=== PATIENT | female | born 1975 | race Caucasian/White ===

== ENCOUNTER 2021-03-02 14:48 | Observation (INO) | payer OTHER, SELFPAY ==
[2021-03-02 14:53] VITALS: BP 118/83; PULSE 111; RESP 18; TEMP 36.7; O2SAT 96
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
[2021-03-02 15:51] LABS: Abs Immature Grans 0.03 10^3/uL (0.0-0.06); Absolute Basophil Count 0.14 10^3/uL (0.0-0.2); Absolute Eosinophil Count 0.15 10^3/uL (0.0-0.7); Absolute Lymphocyte Count 3.51 10^3/uL (1.2-3.4); Absolute Monocyte Count 0.51 10^3/uL (0.1-0.8); Absolute Neutrophil Count 4.62 10^3/uL (1.2-6.7); Basophils % 1.6; Eosinophils % 1.7; HCT 46.1 % (36.0-46.0); HGB 15.5 g/dL (11.2-15.7); Immature Grans % 0.3; Lymphocytes % 39.2; MCH 30.8 pg (27.0-33.0); MCHC 33.6 % (32.0-36.0); MCV 91.5 fL (80-95); MPV 8.7 fL (8.0-11.0); Monocytes % 5.7; Neutrophils % 51.5; Nucleated RBC 0 %; Platelet Count 491 10^3/uL (130-400); RBC 5.04 10^6/uL (3.93-5.22); RDW 11.7 % (11.7-14.6); RDW-SD 39.4 fL; WBC 8.96 10^3/uL (4.4-10.8)
[2021-03-02] MEDS: Normal Saline Flush 10 ML SYR IVP (16:01)
[2021-03-02] MEDS: Lactated Ringers 1,000 ML 1000 ML IV (16:01)
[2021-03-02 16:04] LABS: ALT 109 U/L (14-59); AST 89 U/L (15-37); Albumin 4.4 g/dL (3.4-5.0); Alkaline Phosphatase 172 U/L (46-116); Anion Gap 13.9 mmol/L (3-11); BUN 10 mg/dL (7-18); Bilirubin, Total 0.3 mg/dL (0.2-1.0); CO2 25.1 mmol/L (21.0-32.0); CREATININE 0.8 mg/dL (0.55-1.02); Calcium 9.2 mg/dL (8.5-10.1); Chloride 106 mmol/L (98-107); Glucose 115 mg/dL (74-106); Lipase 150 U/L (73-393); Magnesium 2.4 mg/dL (1.8-2.4); Potassium 3.9 mmol/L (3.5-5.1); Sodium 145 mmol/L (136-145); Total Protein 8.6 g/dL (6.4-8.2)
[2021-03-02 16:06] LABS: ETHANOL BLOOD 382.9 mg/dL (<3); Troponin I < 0.05 ng/mL (<0.06)
[2021-03-02 16:22] LABS: Salicylate < 2.8 mg/dL (<2.8)
[2021-03-02 16:29] LABS: Acetaminophen < 2 ug/mL (10-30)
[2021-03-02 16:30] LABS: TSH (W/Ref FT4) 0.98 uIU/mL (0.36-3.74)
[2021-03-02 16:31] LABS: Bilirubin Negative (Negative); Blood Negative (Negative); Clarity Clear (Clear); Glucose Negative (Negative); Ketones 15 mg/dL (Negative); Leukocyte Esterase Negative (Negative); Nitrite Negative (Negative); Specific Gravity 1.015 (1.005-1.025); Urobilinogen 0.2 EU/dL (Up TO 0.2); pH 5.5 (5-8)
[2021-03-02 16:35] LABS: *AMPHETAMINES SCREEN URINE Negative (Negative); *BARBITURATES SCREEN URINE Negative (Negative); *BENZODIAZEPINES SCREEN URINE Negative (Negative); Cannabinoids THC Negative (Negative); Cocaine Screen,Urine Negative (Negative); METHADONE URINE SCREEN Negative (Negative); OPIATES URINE SCREEN Negative (Negative)
[2021-03-02 16:39] LABS: Tricyclic Antidepressants Negative (Negative)
[2021-03-02] MEDS: Omnipaque 350 MG/ML 100 ML BTL IJ (17:03)
[2021-03-02] MEDS: Normal Saline - Diluent 50 ML VIAL IV (17:03)
[2021-03-02 17:14] VITALS: BP 88/59; PULSE 79; PULSE 92; RESP 15; O2SAT 95
[2021-03-02 17:17] LABS: Source Nasal/Nares
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
[2021-03-02 18:26] LABS: COVID-19 PCR Negative (Negative)
[2021-03-02 18:40] LABS: Troponin I < 0.05 ng/mL (<0.06)
[2021-03-02 19:45] VITALS: BP 129/92; PULSE 104; RESP 17; TEMP 36.5; O2SAT 97
--- NOTE | 2021-03-02 21:01 | NUR.NOTE ---
director life insurance at bedside talking with patient. pt calm, cooperative with care cpso at bedside also:
[2021-03-02] MEDS: Gabapentin 300 MG CAP 600 MG PO (21:57)
[2021-03-02 22:10] VITALS: BP 147/96; PULSE 97; RESP 17; O2SAT 97
[2021-03-03] MEDS: Acetaminophen 500 MG TAB 1000 MG PO (04:27)
--- NOTE | 2021-03-03 04:27 | NUR.NOTE ---
pt awake, requesting medication for headache. pt medicated per md order. no s/sxs of distress noted.:
[2021-03-03] MEDS: Gabapentin 300 MG CAP 600 MG PO (07:14)
[2021-03-03 08:06] VITALS: BP 130/92; PULSE 110; RESP 16; TEMP 36.8; O2SAT 95
[2021-03-03] MEDS: Famotidine 20 MG TAB PO (08:15)
--- NOTE | 2021-03-03 09:45 | NUR.NOTE ---
Nursing Note: 0940 breatherlizer by per request Linda Perez. Pt agreed to test--results- 0
[2021-03-03] MEDS: LORazepam 1 MG TAB PO ×2 (10:01→18:49)
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
--- NOTE | 2021-03-03 11:52 | CMSP_ITS ---
- If Service Date Differs Date of service: 03/03/21 Time of Service: 11:52 Care Management Safety Plan Status: Voluntary - Reason for Wait Reason for Wait: Inpatient Admission VOLUNTARY FOR INPATIENT PSYCHIATRIC STABILIZATION. Patient is appropriate in all interactions since arriving at [facility]; Pt has demonstrated appropriate coping and communication skills, has articulated his or her needs and concerns and is fully engaged during staff interactions. A huddle is held with Dr. Brent Kendall, ED provider, Leslie, nursing supervisor rides, Geetha, charge nurse, GUNJAN Omer, Vadim, [facility], and CONCHA Hernandez. Safety plan has been established with patient, and care team, to adhere to patient goals, identify restrictions based on behavioral status, address nutrition, and determine allowed personal belongings, tools for hygiene and personal care. Determine level of activity including ambulation, level of supervision, visitors, and determine privileges based on behaviors and level of engagement by pt. SAFETY PLAN: 1. Will remain on suicide precautions. In Paper Clothes 2. Will remain in room under direct supervision of one-on-one staff at all times provided by CPSO, MANDA, CUTTING TOOL SHARPENER combined rail operator. 3. May have paper cups, plates, finger foods as well as a cardboard spoon with which to eat meals. 4. Follow [facility] Management of the Admitted Behavioral Health Patient policy. 5. Personal care: May shower with supervision and at RN discretion. 6. No personal belongings. 7. Visitors: No visitors at this time. 8. Activities: Soft cart items, coloring book, crayons, music tablet, televi jorden if available, and other activities at RN discretion. 9. Bathroom privileges with escort while in the ED. May use bathroom available in room without restrictions on Med/Surg. 10. Phone: May use hospital phone for incoming and outgoing telephone calls at RN discretion. 11. Due to VOLUNTARY status, if patient wishes to leave [facility], staff will contact [facility] Crisis Screener ([phone]) and On-Call Legal Aide ([phone]) as soon as possible. In the event of elopement, notify [facility] Police ([phone]). Patient is currently voluntarily at [facility] and seeking inpatient admission when a bed becomes available. [facility] Frontline Porcelain Finish Sprayer will continue seeking placement. Please contact the Upholstery Cutter Legal Aide ([phone]) and [facility] Porcelain Finish Sprayer ([phone]) for any needed changes in the Safety Plan. Safety plan has been provided to interdepartmental care team.
[2021-03-03 12:00] VITALS: BP 104/69; PULSE 103; RESP 16; TEMP 37.2; O2SAT 95
[2021-03-03] MEDS: Gabapentin 800 MG TAB PO ×2 (14:35→21:57)
--- NOTE | 2021-03-03 14:59 | NUR.NOTE ---
Nursing Note: Cam Adamson called from the [facility]. Patient had called the National Suicide Hotline, [place] threatening to take her life. He was following up on the call. Patient [facility] not currently [facility] with the [facility] but he wanted to know if she wanted to register, services or VA assistance. Minnie Barrientos, RN spoke with patient and patient stated she has services in place that she needs. She does not require any at this time from the [facility]. Jacqueline Ennis
--- NOTE | 2021-03-03 15:50 | NUR.NOTE ---
Addendum entered by Jacqueline Ennis 03/03/21 15:52: Any inpatient admission, they need to have notification. Original Note: Nursing Note: Called [facility] and spoke with John. He gave me the patient's correct Policy # [id number] and that she had [employer] HMO plan. Effective date 09/26/2019 and it is still active. Jacqueline Ennis
--- NOTE | 2021-03-03 16:17 | NUR.NOTE ---
Nursing Note: I contacted [address] [address]; Main # [phone], Medical Records [phone], and fax # for Medical Records [phone]. They will fax most recent admission notes to [facility] ED. Release by patient was signed but not needed. Jacqueline Ennis
[2021-03-03] MEDS: Mylanta Suspension 30 ML CUP PO (18:48)
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
[2021-03-03 21:04] VITALS: BP 107/71; PULSE 94; RESP 18; TEMP 36.6; O2SAT 97
[2021-03-03 21:50] VITALS: BP 131/87; PULSE 85; RESP 18; TEMP 36.9; O2SAT 96
[2021-03-03 23:13] VITALS: BP 104/71; PULSE 88; RESP 17; TEMP 36.8; O2SAT 96
[2021-03-04 01:00] VITALS: BP 103/72; PULSE 88; RESP 12; TEMP 36.5; O2SAT 95
[2021-03-04] MEDS: LORazepam 0.5 MG TAB PO ×2 (01:39→10:39)
[2021-03-04 03:00] VITALS: BP 111/75; PULSE 91; RESP 12; TEMP 36.3; O2SAT 97
[2021-03-04 05:00] VITALS: RESP 14; TEMP 36.2
[2021-03-04 08:37] VITALS: BP 142/97; PULSE 103; RESP 16; TEMP 36.4; O2SAT 96
[2021-03-04] MEDS: Gabapentin 800 MG TAB PO ×3 (09:00→19:43)
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
--- NOTE | 2021-03-04 09:41 | W.PM.PROGNOT ---
Date of Service Date of service: 03/04/21 Time of Service: 09:42 Assessment and Plan Assessment and plan (1) Depression: Status: Chronic Assessment and plan: on a voluntary hold here until an inpatient psychiatric bed opens. CPSO and safety plan no behavioral issues continue home medications (2) Alcohol abuse: Status: Chronic Assessment and plan: no signs of withdrawal, continue to monitor. (3) Discharge planning issues: Status: Acute Assessment and plan: mental health following case management following anticipate discharge to inpatient psychiatric bed when available. discussed with Dr Mai Subjective Subjective Patient reports: no new complaints, tolerating liquids well, tolerating a regular diet and afebrile Interval history since last seen: medically clear with no behavioral issues. Exam Const General: comfortable, well developed and No well groomed Nutritional Appearance: average body habitus and well nourished Orientation: alert, awake and oriented x3 HENMT Head: normal to inspection, no palpable skull fracture, normocephalic and atraumatic Ears: hearing grossly normal bilaterally, external ears normal and TM's normal bilaterally General nose exam: external nose normal Mouth: oral mucosae normal and tongue normal Throat: posterior oropharynx normal Eyes General: appearance abnormal, both eyes (patient missing left eye, 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) Alignment and Position: alignment normal Periorbital: periorbital findings normal Eyelids: eyelids normal Conjunctivae: conjunctivae normal Pupils: PERRL Neck Neck: full ROM, trachea midline and supple Resp Effort & Inspection: normal respiratory effort, able to speak in complete sentences and no respiratory distress Auscultation: clear to auscultation bilaterally, no rales, no rhonchi and no wheezes Cardio Rate: regular rate Rhythm: regular rhythm Heart Sounds: S1 normal and S2 normal GI Inspection: normal to inspection and non-distended Palpation: soft, not firm, no guarding, not rigid and nontender Auscultation: normal bowel sounds Back/Spine/Pelvis Back: no CVA tenderness Thoracic/Lumbar Spine: thoracic and lumbar spine normal to inspection Skin General skin exam: no rashes or lesions noted Lesions: no lesions Rashes: no rashes Trauma: no lacerations or abrasions Wounds: no wounds Neuro General: patient alert, patient awake, patient oriented x3, gait normal, tone normal and moves all extremities Cranial Nerves: CN's II-XI intact bilaterally Cognition: normal cognition Speech: speech normal Gait: normal gait Motor: muscle tone normal throughout and strength 5/5 throughout Extrem General: normal to inspection, full ROM, capillary refill normal, no pedal edema and no calf tenderness Psych Appearance: grossly normal, poorly kempt and disheveled Mental Status: mental status grossly normal Objective Last Vital Signs Temp 36.4 C L 03/04/21 08:37 Pulse 103 H 03/04/21 08:37 Resp 16 03/04/21 08:37 BP 142/97 H 03/04/21 08:37 Pulse Ox 96 03/04/21 08:37
--- NOTE | 2021-03-04 11:31 | CMSP_ITS ---
- If Service Date Differs Date of service: 03/04/21 Time of Service: 11:31 Care Management Safety Plan Status: Voluntary - Reason for Wait Reason for Wait: Inpatient Admission VOLUNTARY FOR INPATIENT PSYCHIATRIC STABILIZATION. Patient is appropriate in all interactions since arriving at [facility]; Pt has demonstrated appropriate coping and communication skills, has articulated his or her needs and concerns and is fully engaged during staff interactions. Safety plan has been established with patient, and care team, to adhere to patient goals, identify restrictions based on behavioral status, address nutr ition, and determine allowed personal belongings, tools for hygiene and personal care. Determine level of activity including ambulation, level of supervision, visitors, and determine privileges based on behaviors and level of engagement by pt. A safety huddle was held at 9:30 am. Attending were: ROLANDO Colvin, Jennifer Omer Darcy and Mica, Care Management, Linda and Ronit [facility], nursing sanitation supervisor. SAFETY PLAN: 1. Will remain on suicide precautions. In Paper Clothes 2. Will remain in room under direct supervision of one-on-one staff at all times provided by CPSO; MANDA, AVIATION PROJECT MANAGER clinical mental health counselor. 3. May have paper cups, plates, finger foods as well as a cardboard spoon with which to eat meals. 4. Follow [facility] Management of the Admitted Behavioral Health Patient policy. 5. Comfort bath system only. 6. No personal belongings 7. Visitors-No visitors at this time 8. Activities: may watch TV if available, soft items from activity cart, coloring materials at nursing's discretion 9. Bathroom privileges 10. Phone: may use hospital phone to make and receive calls at nursing's discretion. Father NOT to be contacted. 11. Due to VOLUNTARY status, if patient wishes to leave [facility], staff will contact [facility] Crisis Screener ([phone]) and On-Call Clinical Nurse Specialist ([phone]) as soon as possible. In the event of elopement, notify [facility] Police ([phone]). Patient is currently voluntarily at [facility] and seeking inpatient admission when a bed becomes available. [facility] Frontline Dispensing Operator will continue seeking placement. Please contact the Director Business Intelligence Clinical Nurse Specialist ([phone]) and [facility] Dispensing Operator ([phone]) for any needed changes in the Safety Plan. Safety plan has been provided to interdepartmental care team.
--- NOTE | 2021-03-04 11:31 | PDOC.CMSAFE ---
- If Service Date Differs Date of service: 03/04/21 Time of Service: 11:31 Care Management Safety Plan Status: Voluntary - Reason for Wait Reason for Wait: Inpatient Admission VOLUNTARY FOR INPATIENT PSYCHIATRIC STABILIZATION. Patient is appropriate in all interactions since arriving at [facility]; Pt has demonstrated appropriate coping and communication skills, has articulated his or her needs and concerns and is fully engaged during staff interactions. Safety plan has been established with patient, and care team, to adhere to patient goals, identify restrictions based on behavioral status, address nutrition, and determine allowed personal belongings, tools for hygiene and personal care. Determine level of activity including ambulation, level of supervision, visitors, and determine privileges based on behaviors and level of engagement by pt. A safety huddle was held at 9:30 am. Attending were: ROLANDO Colvin, Jennifer Omer Darcy and Mica, Care Management, Linda and Ronit [facility], nursing sort operations supervisor. SAFETY PLAN: 1. Will remain on suicide precautions. In Paper Clothes 2. Will remain in room under direct supervision of one-on-one staff at all times provided by CPSO; MANDA, JAVA SUPPORT ENGINEER mash filter operator. 3. May have paper cups, plates, finger foods as well as a cardboard spoon with which to eat meals. 4. Follow [facility] Management of the Admitted Behavioral Health Patient policy. 5. Comfort bath system only. 6. No personal belongings 7. Visitors-No visitors at this time 8. Activities: may watch TV if available, soft items from activity cart, coloring materials at nursing's discretion 9. Bathroom privileges 10. Phone: may use hospital phone to make and receive calls at nursing's discretion. Father NOT to be contacted. 11. Due to VOLUNTARY status, if patient wishes to leave [facility], staff will contact [facility] Crisis Screener ([phone]) and On-Call Operator/Assistant Foreman ([phone]) as soon as possible. In the event of elopement, notify [place] State Police ([phone]). Patient is currently voluntarily at [facility] and seeking inpatient admission when a bed becomes available. [facility] Frontline Driver Material Handler will continue seeking placement. Please contact the Freight Rate Clerk Operator/Assistant Foreman ([phone]) and [facility] Driver Material Handler ([phone]) for any needed changes in the Safety Plan. Safety plan has been provided to interdepartmental care team.
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
[2021-03-04] MEDS: Acamprosate 333 MG TABCR 666 MG PO ×2 (14:01→19:43)
[2021-03-04 19:33] VITALS: BP 116/78; PULSE 131; RESP 19; TEMP 37.1; O2SAT 98
[2021-03-04] MEDS: Mylanta Suspension 30 ML CUP PO (21:50)
[2021-03-04] MEDS: Amitriptyline 25 MG TAB PO (21:50)
[2021-03-04 22:58] VITALS: BP 124/87; PULSE 110; RESP 18; TEMP 36.6; O2SAT 95
[2021-03-04] MEDS: Ibuprofen 400 MG TAB PO (23:02)
[2021-03-05] MEDS: Acetaminophen 500 MG TAB 1000 MG PO ×3 (02:20→21:52)
[2021-03-05] MEDS: LORazepam 0.5 MG TAB PO ×2 (04:58→21:53)
[2021-03-05 08:25] VITALS: BP 96/65; PULSE 94; RESP 15; TEMP 36.8; O2SAT 96
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
[2021-03-05] MEDS: Cyanocobalamin 500 MCG TAB 1000 MCG PO (09:12)
[2021-03-05] MEDS: Folic Acid 1 MG TAB PO (09:12)
[2021-03-05] MEDS: Acamprosate 333 MG TABCR 666 MG PO ×3 (09:12→21:54)
[2021-03-05] MEDS: Omeprazole 20 MG CAPCR PO (09:12)
[2021-03-05] MEDS: Gabapentin 800 MG TAB PO ×3 (09:13→21:54)
[2021-03-05] MEDS: Mylanta Suspension 30 ML CUP PO ×2 (10:32→15:29)
--- NOTE | 2021-03-05 10:43 | CMSP_ITS ---
- If Service Date Differs Date of service: 03/05/21 Time of Service: 10:43 Care Management Safety Plan Status: Voluntary - Reason for Wait Reason for Wait: Inpatient Admission VOLUNTARY FOR INPATIENT PSYCHIATRIC STABILIZATION. Patient is appropriate in all interactions since arriving at [facility]; Pt has demonstrated appropriate coping and communication skills, has articulated his or her needs and concerns and is fully engaged during staff interactions. Safety plan has been established with patient, and care team, to adhere to patient goals, identify restrictions based on behavioral status, address nutr ition, and determine allowed personal belongings, tools for hygiene and personal care. Determine level of activity including ambulation, level of supervision, visitors, and determine privileges based on behaviors and level of engagement by pt. A safety huddle was held at 9:30 am. Attending were: ROLANDO Colvin, Jennifer Omer Darcy and Mica, Care Management, Linda and Ronit [facility], nursing alum plant supervisor. SAFETY PLAN: 1. Will remain on suicide precautions. In Paper Clothes 2. Will remain in room under direct supervision of one-on-one staff at all times provided by CPSO; MANDA, CARBON FURNACE OPERATOR HELPER risk control director. 3. May have paper cups, plates, finger foods as well as a cardboard spoon with which to eat meals. 4. Follow [facility] Management of the Admitted Behavioral Health Patient policy. 5. May shower at nursing discretion. 6. No personal belongings, may have yoga mat. 7. Visitors-No visitors at this time 8. Activities: may watch TV if available, soft items from activity cart, colori ng materials at nursing's discretion 9. Bathroom privileges 10. Phone: may use hospital phone to make and receive calls at nursing's discretion. Father NOT to be contacted. 11. Due to VOLUNTARY status, if patient wishes to leave [facility], staff will contact [facility] Crisis Screener ([phone]) and On-Call Vice President For Philanthropy ([phone]) as soon as possible. In the event of elopement, notify [facility] Police ([phone]). Patient is currently voluntarily at [facility] and seeking inpatient admission when a bed becomes available. [facility] Frontline Cutter First will continue seeking placement. Please contact the Retail Cashier Vice President For Philanthropy ([phone]) and [facility] Cutter First ([phone]) for any needed changes in the Safety Plan. Safety plan has been provided to interdepartmental care team.
--- NOTE | 2021-03-05 10:43 | PDOC.CMSAFE ---
- If Service Date Differs Date of service: 03/05/21 Time of Service: 10:43 Care Management Safety Plan Status: Voluntary - Reason for Wait Reason for Wait: Inpatient Admission VOLUNTARY FOR INPATIENT PSYCHIATRIC STABILIZATION. Patient is appropriate in all interactions since arriving at [facility]; Pt has demonstrated appropriate coping and communication skills, has articulated his or her needs and concerns and is fully engaged during staff interactions. Safety plan has been established with patient, and care team, to adhere to patient goals, identify restrictions based on behavioral status, address nutrition, and determine allowed personal belongings, tools for hygiene and personal care. Determine level of activity including ambulation, level of supervision, visitors, and determine privileges based on behaviors and level of engagement by pt. A safety huddle was held at 9:30 am. Attending were: ROLANDO Colvin, Jennifer Omer Darcy and Mica, Care Management, Linda and Ronit [facility], nursing sign builder supervisor. SAFETY PLAN: 1. Will remain on suicide precautions. In Paper Clothes 2. Will remain in room under direct supervision of one-on-one staff at all times provided by CPSO; MANDA, DEVELOPMENT REPRESENTATIVE pig casting machine operator. 3. May have paper cups, plates, finger foods as well as a cardboard spoon with which to eat meals. 4. Follow [facility] Management of the Admitted Behavioral Health Patient policy. 5. May shower at nursing discretion. 6. No personal belongings, may have yoga mat. 7. Visitors-No visitors at this time 8. Activities: may watch TV if available, soft items from activity cart, coloring materials at nursing's discretion 9. Bathroom privileges 10. Phone: may use hospital phone to make and receive calls at nursing's discretion. Father NOT to be contacted. 11. Due to VOLUNTARY status, if patient wishes to leave [facility], staff will contact [facility] Crisis Screener ([phone]) and On-Call Machinist Wood ([phone]) as soon as possible. In the event of elopement, notify [facility] Police ([phone]). Patient is currently voluntarily at [facility] and seeking inpatient admission when a bed becomes available. [facility] Frontline Photographic Printer will continue seeking placement. Please contact the Merchant Mariner Machinist Wood ([phone]) and [facility] Photographic Printer ([phone]) for any needed changes in the Safety Plan. Safety plan has been provided to interdepartmental care team.
[2021-03-05 11:28] VITALS: BP 114/89; PULSE 118; RESP 16; TEMP 37; O2SAT 95
--- NOTE | 2021-03-05 14:09 | W.PM.PROGNOT ---
Date of Service Date of service: 03/05/21 Time of Service: 14:09 Assessment and Plan Assessment and plan (1) Depression: Status: Chronic Assessment and plan: on a voluntary hold here until an inpatient psychiatric bed opens. CPSO and safety plan no behavioral issues continue home medications (2) Alcohol abuse: Status: Chronic Assessment and plan: no signs of withdrawal, continue to monitor. (3) Discharge planning issues: Status: Acute Assessment and plan: mental health following case management following anticipate discharge to inpatient psychiatric bed when available. discussed with Dr Mai Subjective Subjective Patient reports: no new complaints, tolerating liquids well, tolerating a regular diet, voiding w/o difficulty and afebrile Interval history since last seen: no sign of alcohol withdrawal Exam Const General: comfortable, well developed and No well groomed Nutritional Appearance: average body habitus and well nourished Orientation: alert, awake and oriented x3 HENMT Head: normal to inspection, no palpable skull fracture, normocephalic and atraumatic Ears: hearing grossly normal bilaterally, external ears normal and TM's normal bilaterally General nose exam: external nose normal Mouth: oral mucosae normal and tongue normal Throat: posterior oropharynx normal Eyes General: appearance abnormal, both eyes (patient missing left eye, 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) Alignment and Position: alignment normal Periorbital: periorbital findings normal Eyelids: eyelids normal Conjunctivae: conjunctivae normal Pupils: PERRL Neck Neck: full ROM, trachea midline and supple Resp Effort & Inspection: normal respiratory effort, able to speak in complete sentences and no respiratory distress Auscultation: clear to auscultation bilaterally, no rales, no rhonchi and no wheezes Cardio Rate: regular rate Rhythm: regular rhythm Heart Sounds: S1 normal and S2 normal GI Inspection: normal to inspection and non-distended Palpation: soft, not firm, no guarding, not rigid and nontender Auscultation: normal bowel sounds Back/Spine/Pelvis Back: no CVA tenderness Thoracic/Lumbar Spine: thoracic and lumbar spine normal to inspection Skin General skin exam: no rashes or lesions noted Lesions: no lesions Rashes: no rashes Trauma: no lacerations or abrasions Wounds: no wounds Neuro General: patient alert, patient awake, patient oriented x3, gait normal, tone normal and moves all extremities Cranial Nerves: CN's II-XI intact bilaterally Cognition: normal cognition Speech: speech normal Gait: normal gait Motor: muscle tone normal throughout and strength 5/5 throughout Extrem General: normal to inspection, full ROM, capillary refill normal, no pedal edema and no calf tenderness Psych Appearance: grossly normal, poorly kempt and disheveled Mental Status: mental status grossly normal Objective Last Vital Signs Temp 37 C 03/05/21 11:28 Pulse 118 H 03/05/21 11:28 Resp 16 03/05/21 11:28 BP 114/89 03/05/21 11:28 Pulse Ox 95 03/05/21 11:28
[2021-03-05 15:35] VITALS: BP 115/84; PULSE 114; RESP 18; TEMP 36.5; O2SAT 98
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
[2021-03-05] MEDS: Amitriptyline 25 MG TAB PO (21:54)
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
[2021-03-06 08:53] VITALS: BP 118/77; PULSE 95; RESP 16; TEMP 36.3; O2SAT 98
[2021-03-06] MEDS: Acamprosate 333 MG TABCR 666 MG PO ×3 (08:57→21:05)
[2021-03-06] MEDS: Cyanocobalamin 500 MCG TAB 1000 MCG PO (08:57)
[2021-03-06] MEDS: Gabapentin 800 MG TAB PO ×3 (08:58→21:04)
[2021-03-06] MEDS: Folic Acid 1 MG TAB PO (08:58)
[2021-03-06] MEDS: Omeprazole 20 MG CAPCR PO (08:58)
--- NOTE | 2021-03-06 09:10 | NUR.NOTE ---
Patient on phone with . Patient telling her that mental health worker Linda is trying to make her look crazy and trying to put her into a mental hospital. Patient becoming agitated stating that Linda is trying to make it look like she is going to hang herself or kill other people. Patient also telling to prepare for mental health to call with multiple negative questions and trap into making a report that makes patient seem unstable. Patient also expressing desire to return to [place] and telling her to not ask questions and to stay straight on the path when mental health worker calls him.
--- NOTE | 2021-03-06 09:40 | PDOC.CMSAFE ---
- If Service Date Differs Date of service: 03/06/21 Time of Service: 09:40 Care Management Safety Plan Status: Voluntary - Reason for Wait Reason for Wait: Inpatient Admission VOLUNTARY FOR INPATIENT PSYCHIATRIC STABILIZATION. Patient is appropriate in all interactions since arriving at [facility]; Pt has demonstrated appropriate coping and communication skills, has articulated his or her needs and concerns and is fully engaged during staff interactions. Safety plan has been established with patient, and care team, to adhere to patient goals, identify restrictions based on behavioral status, address nutrition, and determine allowed personal belongings, tools for hygiene and personal care. Determine level of activity including ambulation, level of supervision, visitors, and determine privileges based on behaviors and level of engagement by pt. A safety huddle was held at 9:30 am. Attending were: ROLANDO Colvin, Jennifer Omer Darcy and Mica, Care Management, Linda and Ronit [facility], nursing mechanical maintenance supervisor. SAFETY PLAN: 1. Will remain on suicide precautions in paper clothes 2. Will remain in room under direct supervision of one-on-one staff at all times provided by CPSO; MANDA, FURNITURE ASSEMBLER AND INSTALLER scrap hoist operator. 3. May have paper cups, plates, finger foods as well as a cardboard spoon with which to eat meals. 4. Follow [facility] Management of the Admitted Behavioral Health Patient policy. 5. May shower at nursing discretion. 6. No personal belongings but may have yoga mat. 7. Visitors- may visit at nursing discretion 8. Activities: may watch TV if available, soft items from activity cart, coloring materials at nursing's discretion 9. Bathroom privileges 10. Phone: may use hospital phone to make and receive calls at nursing's discretion. Parents no longer on HIPAA. 11. Due to VOLUNTARY status, if patient wishes to leave [facility], staff will contact [facility] Crisis Screener ([phone]) and On-Call Molding Machine Tender ([phone]) as soon as possible. In the event of elopement, notify [facility] Police ([phone]). Patient is currently voluntarily at [facility] and seeking inpatient admission when a bed becomes available. [facility] Frontline Sheet Rock Finisher will continue seeking placement. Please contact the Printed Circuit Board Panels Deburrer Molding Machine Tender ([phone]) and [facility] Sheet Rock Finisher ([phone]) for any needed changes in the Safety Plan. Safety plan has been provided to interdepartmental care team. cc:
[2021-03-06] MEDS: Acetaminophen 500 MG TAB 1000 MG PO ×3 (10:10→23:40)
[2021-03-06] MEDS: Ibuprofen 400 MG TAB PO ×2 (14:02→21:06)
[2021-03-06] MEDS: LORazepam 0.5 MG TAB PO ×3 (14:07→21:05)
--- NOTE | 2021-03-06 14:45 | W.PM.PROGNOT ---
Date of Service Date of service: 03/06/21 Time of Service: 14:45 Assessment and Plan Assessment and plan (1) Depression: Status: Chronic Assessment and plan: on a voluntary hold here until an inpatient psychiatric bed opens. CPSO and safety plan no behavioral issues continue home medications (2) Alcohol abuse: Status: Chronic Assessment and plan: no signs of withdrawal, will discontinue ciwa. (3) Discharge planning issues: Status: Acute Assessment and plan: mental health following case management following anticipate discharge to inpatient psychiatric bed when available. discussed with Dr Mai Subjective Subjective Patient reports: no new complaints, tolerating liquids well, tolerating a regular diet and afebrile Interval history since last seen: remains medically stable, no signs of withdrawal Exam Const General: comfortable, well developed and No well groomed Nutritional Appearance: average body habitus and well nourished Orientation: alert, awake and oriented x3 HENMT Head: normal to inspection, no palpable skull fracture, normocephalic and atraumatic Ears: hearing grossly normal bilaterally, external ears normal and TM's normal bilaterally General nose exam: external nose normal Mouth: oral mucosae normal and tongue normal Throat: posterior oropharynx normal Eyes General: appearance abnormal, both eyes (patient missing left eye, 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) Alignment and Position: alignment normal Periorbital: periorbital findings normal Eyelids: eyelids normal Conjunctivae: conjunctivae normal Pupils: PERRL Neck Neck: full ROM, trachea midline and supple Resp Effort & Inspection: normal respiratory effort, able to speak in complete sentences and no respiratory distress Auscultation: clear to auscultation bilaterally, no rales, no rhonchi and no wheezes Cardio Rate: regular rate Rhythm: regular rhythm Heart Sounds: S1 normal and S2 normal GI Inspection: normal to inspection and non-distended Palpation: soft, not firm, no guarding, not rigid and nontender Auscultation: normal bowel sounds Back/Spine/Pelvis Back: no CVA tenderness Thoracic/Lumbar Spine: thoracic and lumbar spine normal to inspection Skin General skin exam: no rashes or lesions noted Lesions: no lesions Rashes: no rashes Trauma: no lacerations or abrasions Wounds: no wounds Neuro General: patient alert, patient awake, patient oriented x3, gait normal, tone normal and moves all extremities Cranial Nerves: CN's II-XI intact bilaterally Cognition: normal cognition Speech: speech normal Gait: normal gait Motor: muscle tone normal throughout and strength 5/5 throughout Extrem General: normal to inspection, full ROM, capillary refill normal, no pedal edema and no calf tenderness Psych Appearance: grossly normal, poorly kempt and disheveled Mental Status: mental status grossly normal Objective Last Vital Signs Temp 36.3 C L 03/06/21 08:53 Pulse 95 H 03/06/21 08:53 Resp 16 03/06/21 08:53 BP 118/77 03/06/21 08:53 Pulse Ox 98 03/06/21 08:53
[2021-03-06 15:15] VITALS: BP 123/87; PULSE 84; RESP 18; TEMP 36.3; O2SAT 99
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
[2021-03-06 21:03] LABS: Source Nasal/Nares
[2021-03-06] MEDS: Amitriptyline 25 MG TAB 50 MG PO (21:05)
[2021-03-06 21:54] LABS: COVID-19 PCR Negative (Negative)
[2021-03-06 23:30] VITALS: BP 116/84; PULSE 95; RESP 18; TEMP 36.4; O2SAT 97
[2021-03-07] MEDS: LORazepam 0.5 MG TAB PO ×2 (05:03→08:22)
[2021-03-07] MEDS: Ibuprofen 400 MG TAB PO (05:03)
[2021-03-07 08:00] VITALS: BP 118/85; PULSE 109; RESP 16; TEMP 37; O2SAT 99
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
[2021-03-07] MEDS: Acamprosate 333 MG TABCR 666 MG PO (08:22)
[2021-03-07] MEDS: Gabapentin 800 MG TAB PO (08:23)
[2021-03-07] MEDS: Acetaminophen 500 MG TAB 1000 MG PO (08:23)
[2021-03-07] MEDS: Folic Acid 1 MG TAB PO (08:23)
[2021-03-07] MEDS: Cyanocobalamin 500 MCG TAB 1000 MCG PO (08:23)
[2021-03-07] MEDS: Omeprazole 20 MG CAPCR PO (08:24)
[2021-03-07] MEDS: Mylanta Suspension 30 ML CUP PO (09:37)
--- NOTE | 2021-03-07 10:10 | CMDISCH_ITS ---
- If Service Date Differs Date of service: 03/07/21 Time of Service: 10:10 Care Management Discharge Reason for Hospitalization: depression Discharge Plan: Sheeba will be transferred to [facility] in [place], [place]. She will transport with [facility]'s department coordinated by [facility]. Patient/Family Education Needs: expectastions, limitations,Ask Me Three - MH Services (Omit if N/A) Referred to Internal [facility] (ED embedded) manager of case?: No - Disposition Disposition: Other Transport via of: Rail Signal Mechanic ([facility] (psychiatric)in [place], [place].)
--- NOTE | 2021-03-07 10:10 | PDOC.CMDIS ---
- If Service Date Differs Date of service: 03/07/21 Time of Service: 10:10 Care Management Discharge Reason for Hospitalization: depression Discharge Plan: Sheeba will be transferred to [facility] in [place], [place]. She will transport with [facility]'s department coordinated by [facility]. Patient/Family Education Needs: expectastions, limitations,Ask Me Three - MH Services (Omit if N/A) Referred to [facility] (ED embedded) child welfare caseworker?: No - Disposition Disposition: Other Transport via of: Staff Research Associate ([facility] (psychiatric)in [place], [place]
== END 2021-03-07 09:57 | disposition other institution (70) ==
LOC: ER 03-03 20:53 → MS 03-03 21:26
PROVIDERS: Family Medicine; Physician Assistant; Admitting Provider General Practice; Emergency Provider Emergency Medicine; Visit Provider General Practice
DX: F32.9 Major depressive disorder, single episode, unspecified (principal); F10.129 Alcohol abuse with intoxication, unspecified; Y90.8 Blood alcohol level of 240 mg/100 ml or more; T14.91XA Suicide attempt, initial encounter; Y92.410 Unspecified street and highway as the place of occurrence of the external cause; Z20.822 Contact with and (suspected) exposure to COVID-19
CPT/HCPCS: 36415; 74177; 80053; 80307; 81025; 83690; 87635; 96360; 99285; 70450; 71260; 72125; 80320; 80329; 81003; 83735; 84443; 84484; 85025; 99217; 99218; 99225; 99226; 99233; G0378; J3490